=== PATIENT | male | born 1950 ===

== ENCOUNTER 2024-11-20 06:41 | Day surgery (SDC) | payer MEDICARE, SELFPAY | END 2024-11-20 09:01 | disposition home or self-care (01) | LOC: GI 06:41 | PROVIDERS: ATTENDING PHYSICIAN Internal Medicine | DX: Z12.11 Encounter for screening for malignant neoplasm of colon (principal); D12.2 Benign neoplasm of ascending colon; K64.9 Unspecified hemorrhoids; Z86.0101 Personal history of adenomatous and serrated colon polyps | CPT/HCPCS: 45385; 88305 ==